=== PATIENT | male | born 1995 | race African-American/Black ===

== ENCOUNTER 2017-01-16 17:23 | Emergency (ER) | payer OTHER ==
[~2017-01-16] VITALS: Ht 167.6 cm; Wt 100.0 kg
[~2017-01-16 17:23] MED LIST: BACT800T5 PO; CEPH500C3 PO; FIORIC PO
[2017-01-16 17:25] VITALS: BP 163/96; PULSE 104; RESP 14; TEMP 98; O2SAT 98
--- NOTE | 2017-01-16 18:08 | PD ---
HPI Chief Complaint: Skin Problem Time Seen by Provider: 17:53 Travel History International Travel<30 days: No Contact w/Intl Traveler<30days: No Traveled to known affect area: No History of Present Illness HPI 21-year-old male patient here with a workplace injury from [employer]. 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 Bleeding is currently controlled with pressure dressing. Pain is 6 out of 10. Patient is unsure of his tetanus status. Patient denies loss of function. He has no numbness. He has no other injury. No known drug allergies are noted. PFSH Past Medical History Asthma: Yes Diminished Hearing: No Hypertension: Yes Neurologic: Yes (NEUROFIBROMATOSIS) Respiratory: Yes (HX OF ASTHMA) Immunizations Current: Yes Social History Alcohol Use: No Tobacco Use: No Substance Use: No Allergies-Medications (Allergen,Severity, Reaction): Coded Allergies: No Known Allergies (Verified , 10/28/13) Reported Meds & Prescriptions Reported Meds & Active Scripts Active Keflex (Cephalexin Monohydrate) 500 Mg Cap 500 Mg PO QID 5 Days Bactrim DS (Sulfamethoxazole-Trimethoprim DS) 1 Tab Tab 1 Tab PO BID Fioricet Tab (Acetaminophen/Butalbital/Caffeine) 1 Tab Tab 1 Tab PO Q6H PRN Review of Systems Except as stated in HPI: all other systems reviewed are Neg General / Constitutional: No: Fever Eyes: No: Visual changes HENT: No: Headaches Cardiovascular: No: Chest Pain or Discomfort Respiratory: No: Shortness of Breath Gastrointestinal: No: Abdominal Pain Genitourinary: No: Dysuria Musculoskeletal: No: Pain Skin: Positive Lesions, No Rash Neurologic: No: Weakness Psychiatric: No: Depression Endocrine: No: Polydipsia Hematologic/Lymphatic: No: Easy Bruising Physical Exam Narrative GENERAL: Patient appears in no acute distress. SKIN: Warm and dry. Normal color. Normal turgor. There is a 1 cm x 4 mm oblong avulsion type laceration to the right distal lateral thumb which does not involve the nail bed or bony structure. Bleeding is minimal. There is no encroachment on the joint space. HEAD: Atraumatic. Normocephalic. EYES: Pupils equal and round. No scleral icterus. No injection or drainage. ENT: No nasal bleeding or discharge. Mucous membranes pink and moist. NECK: Trachea midline. No JVD. CARDIOVASCULAR: Regular rate and rhythm. RESPIRATORY: No accessory muscle use. Clear to auscultation. Breath sounds equal bilaterally. GASTROINTESTINAL: Abdomen soft, non-tender, nondistended. Hepatic and splenic margins not palpable. MUSCULOSKELETAL: Extremities without clubbing, cyanosis, or edema. No obvious deformities. Range of motion is full. Strength is intact. NEUROLOGICAL: Awake and alert. No obvious cranial nerve deficits. Motor grossly within normal limits. Five out of 5 muscle strength in the arms and legs. Normal speech. PSYCHIATRIC: Appropriate mood and affect; insight and judgment normal. Data Data Last Documented VS Vital Signs Date Time Temp Pulse Resp B/P (MAP) Pulse Ox O2 Delivery O2 Flow Rate FiO2 01/16/17 17:25 98.0 104 14 163/96 (118) 98 Orders Orders Tetanus/Diphtheria Tox Adult (Tetanus/Di (01/16/17 18:15) MDM Medical Decision Making Medical Screen Exam Complete: Yes Emergency Medical Condition: Yes Differential Diagnosis Workplace injury. Thumb laceration. Need for tetanus. Narrative Course Wound is cleansed and dressed with Xeroform gauze, bulky 4 x 4's, and Coban. Patient is given tetanus 0.5 mg IM. Patient is given ibuprofen 600 mg when necessary pain. No antibiotics are felt warranted at this time. Wound care and dressing care is discussed. Patient follow with Worker's Comp. as scheduled tomorrow. Diagnosis Primary Impression: Laceration of right thumb without complication Qualified Codes: S61.011A - Laceration without foreign body of right thumb without damage to nail, initial encounter Patient Instructions: Acute Wound Care (GEN), General Instructions, Laceration Without Closure (ED) Additional Instructions: Patient is given tetanus 0.5 mg IM. Patient is given ibuprofen 600 mg when necessary pain. No antibiotics are felt warranted at this time. Wound care and dressing care is discussed. Patient follow with Worker's Comp. as scheduled tomorrow. Med/Other Pt SpecificInfo: Prescription(s) given Disposition: 01 DISCHARGE HOME Condition: Stable Eduard Wayne Jan 16, 2017 18:08
[2017-01-16] MEDS ORDERED: TETANUS/DIPHTHERIA TOXOID ADULT 0.5 ML VIAL IM ONE (18:15)
[2017-01-16] MEDS ORDERED: IBUP1TAB7 PO (18:16)
== END 2017-01-16 19:14 | disposition home or self-care (01) ==
LOC: NEPD 17:23
DX: S61.011A Laceration without foreign body of right thumb without damage to nail, initial encounter (principal); J45.909 Unspecified asthma, uncomplicated; I10 Essential (primary) hypertension; Q85.00 Neurofibromatosis, unspecified; W31.89XA Contact with other specified machinery, initial encounter; Y92.512 Supermarket, store or market as the place of occurrence of the external cause; Y99.0 Civilian activity done for income or pay; Z23 Encounter for immunization; Z79.899 Other long term (current) drug therapy
CPT/HCPCS: 90471; 90714